=== PATIENT | female | born 1965 | race Caucasian/White ===

== ENCOUNTER 2017-07-15 09:16 | Inpatient (IN) | payer OTHER, MEDICAID ==
[2017-07-15] VITALS (8 sets, daily range): BP systolic 73–139; BP diastolic 30–86
[~2017-07-15] VITALS: Ht 157.5 cm; Wt 79.7 kg
[~2017-07-15 09:16] MED LIST: ACIDOPHILUS W/P1 CAP PO; AFRIN NS; AFRNS; AMANTADINE HCL100 M1; AMANTADINE HCL100 M1 PO; ASPIR 8181 MG PO; ATORVASTATIN CA10 M1 PO; CALCIUM + D1 TA1 PO; CARVEDILOL25 M1 PO; CLOPIDOGREL75 M1 PO; CORE25 PO; COREG12.5 MG PO; FAMOTIDINE20 MG PO; GLIPIZIDE5 MG PO; HYD25 PO; JANUVIA100 M1 PO; LAC PO; LEVAQUIN500 MG PO; LEVOTHYROXIN0.075 M2 PO; LIPI10 PO; LISINOPRIL20 MG PO; MEDDP PO; METFORMIN1000 M1 PO; NOR10 PO; OCU OU; PLA75 PO; PREOS; PRINIVIL10 MG PO; RESTASIS0.051 OU; ZES20 PO; ZOC20 PO
--- NOTE | 2017-07-15 09:25 | NUR ---
PT WAS BROUGHT IN BY AMBULANCE W/CC OF RESPIRATORY DISTRESS. PER MEDIC "PT LAST SEEN NORMAL WAS LAST NIGHT. HER FAMILY SAID SHE APPEARED TO BE RETAINING FLUIDS BUT DIDN'T WANT TO COME IN TO BE SEEN. THIS MORNING AROUND 0730 PATIENT WAS FOUND BREATHING HEAVILY AND INCONTINENT". PT ARRIVED TO ED IN RESP DISTRESS USING BIPAP MACHINE TO ASSIST IN BREATHING. DR. BUTLER AT BEDSIDE FOR MSE.
--- NOTE | 2017-07-15 09:25 | NUR ---
RT AT BEDSIDE ASSISTING DR. BUTLER W/INTUBATION. PT PRESENTS NO GAG REFLEX. INTUBATION TO FOLLOW.
--- NOTE | 2017-07-15 09:27 | NUR ---
10MG ETOMODATE IVP AND 75MG SUCCINYLCHOLINE IVP ADMINISTERED BY PARI JENSEN.
--- NOTE | 2017-07-15 09:40 | NUR ---
INTUBATION WAS UNSUCCESSFUL. DR. BUTLER IN PROGRESS OF ATTEMPTING AGAIN.
--- NOTE | 2017-07-15 09:41 | NUR ---
ADDITIONAL 50MG SUCCINYLCHOLINE AND 5MG OF ETOMODATE IVO ADMINISTERED BY PARI JENSEN DUE TO PT BECOMING AGGITATED DURING SECOND INTUBATION ATTEMPT ORDERED BY DR. BUTLER.
--- NOTE | 2017-07-15 09:47 | NUR ---
PT SUCCESSFULLY INTUBATED AT 23CM RT LIP LINE 7.5.
--- NOTE | 2017-07-15 10:00 | NUR ---
2L OF NS FLOWING PER SEPSIS PROTOCOL AND ORDERED BY DR. BUTLER
--- NOTE | 2017-07-15 10:08 | NUR ---
ZAMBRANO CATHETER INSERTED. APPROX 30CC URINE COLLECTED AND SENT TO LAB. NG TUBE TO FOLLOW. LAB AT BEDSIDE FOR DRAW.
--- NOTE | 2017-07-15 10:42 | NUR ---
RT AT BEDSIDE FOR ABG. FAMILY ALSO AT BEDSIDE.
[2017-07-15 10:43] LABS: CALCIUM 8.4 mg/dL (8.5-10.1); CARBON DIOXIDE 21.8 mmol/L (21-32); CREATININE SERUM 2.6 mg/dL (0.6-1.0); POTASSIUM SERUM 3.5 mmol/L (3.5-5.1)
[2017-07-15 10:49] LABS: microscopic required? YES; urine erythrocyte 1+ (NEGATIVE)
[2017-07-15 10:55] LABS: BILIRUBIN TOTAL 0.92 mg/dL (0.20-1.00)
--- NOTE | 2017-07-15 10:55 | NUR ---
FIO2 LOWERED TO 60% BY RT ON VENT SETTINGS.
[2017-07-15 10:59] LABS: CK-MB < 0.5 ng/mL (0-3.6); CREATINE KINASE 43 U/L (26-192)
[2017-07-15 11:00] LABS: ALBUMIN 2.5 g/dL (3.4-5.0); PLATELET COUNT 211 x10^3mcL (130-400); TOTAL PROTEIN, SERUM 6.1 g/dL (6.4-8.2)
--- NOTE | 2017-07-15 11:00 | NUR ---
PT'S BP DECREASED POST FLUID RESUSCITATION PER SEPSIS PROTOCOL. DR. BUTLER MADE AWARE.
--- NOTE | 2017-07-15 11:09 | NUR ---
1.5GM ROCEPHIN INFUSING ORDERED. RT HAND IV SITE PATENT. NO S/S OF INFILTRATION NOTED.
[2017-07-15 11:12] LABS: BAND NEUTROPHIL 40 % (0-10); MONOCYTE 12 % (0-7); SEGMENTED NEUTROPHILS 28 % (37-75); rbc morphology (normal/abnorm) ABNORMAL (NORMAL)
[2017-07-15 11:13] LABS: PLATELET MORPHOLOGY PLATELETS DECREASED
--- NOTE | 2017-07-15 11:20 | NUR ---
INFORMED DR. BUTLER OF PT'S BP DECREASING. DR. BUTLER ORDERED CENTRAL LINE PLACEMENT. CONSENT EXPLAINED AND SIGNED BY PT'S MOTHER. MOTHER AND SISTER VERBALIZED UNDERSTANDING OF NEED FOR CENTRAL LINE AND AGREED TO HAVE PROCEDURE DONE.
--- NOTE | 2017-07-15 11:39 | NUR ---
DOPAMINE 10MCG/MIN INFUSING ORDERED BY DR. BUTLER FOR DECREASING BP READING OF 71/43 (53).
--- NOTE | 2017-07-15 11:41 | NUR ---
MEDICATED ORDERED. PLEASE SEE EMR.
--- NOTE | 2017-07-15 12:01 | NUR ---
DR. BUTLER AT BEDSIDE PERFORMING CENTRAL LINE INSERTION. CHARGE NURSE FRANKY AND EMT ZENIA AT BEDSIDE ASSITING W/INSERTION.
--- NOTE | 2017-07-15 12:10 | NUR ---
RT CENTRAL LINE INSERTION COMPLETED. 100UNITS HEPARIN FLUSHED IN EACH PORT INSTRUCTED BY DR. BUTLER
--- NOTE | 2017-07-15 12:15 | NUR ---
FAMILY AT BEDSIDE. PT RESPONDING WELL. VSS. WILL CONTINUE TO MONITOR.
--- NOTE | 2017-07-15 12:40 | NUR ---
DR. BUTLER AT BEDSIDE DISCUSSING PLAN OF CARE W/FAMILY.
--- NOTE | 2017-07-15 12:55 | NUR ---
REPORT GIVEN TO PARI SPAIN IN ICU FOR CONTINUATION OF CARE OF PT.
[2017-07-15] MEDS ORDERED: CITALOPRAM HYDR10 M1 PO (13:00)
[2017-07-15] MEDS ORDERED: MUCINEX DM1 TE1 PO (13:01)
[2017-07-15] MEDS ORDERED: PROMETHAZI6.25 MG/5 PO (13:01)
--- NOTE | 2017-07-15 13:15 | NUR ---
DR. BUTLER AT BEDSIDE ADJUSTING CENTRAL LINE. XRAY RESULTS PROVED NEED FOR ADJUSTMENT.
--- NOTE | 2017-07-15 13:37 | NUR ---
DR. BYERS IN UNIT AND MADE AWARE LACTIC ACID 6.2, AWAITING PT'S ARRIVAL TO UNIT. PRIMARY RN MADE AWARE.
[2017-07-15 13:39] LABS: MAGNESIUM 1.3 mg/dL (1.8-2.4); PHOSPHOROUS 1.3 mg/dL (2.5-4.9)
[2017-07-15 13:42] LABS: CHOLESTEROL/HDL RATIO 1.7
--- NOTE | 2017-07-15 13:45 | NUR ---
RT AT BEDSIDE TO ASSIST W/TRANSFER OF PT TO ICU BED 3.
[2017-07-15 13:48] LABS: T3 TOTAL 0.54 ng/mL
--- NOTE | 2017-07-15 13:49 | NUR ---
MADE AWARE OF PHOSPHATE AND MAGNESIUM 1.3, WILL CONTINUE TO MONITOR.
[2017-07-15 13:50] LABS: FREE T4 1.24 ng/dL (0.76-1.46); FREE THYROXINE INDEX 2.6 ug/dL (1.4-4.5); T4(THYROXINE) 6.7 ug/dL (4.7-13.3)
--- NOTE | 2017-07-15 14:00 | NUR ---
PT TRANSFERED VIA GURNEY TO ICU BED 3 ACCOMPANIED BY NURSE, EMT AND RT. VSS. IV SITES AND CENTRAL LINE ARE INTACT. NO S/S OF INFILTRATION OR INFECTION NOTED. PT IN NO VISIBLE DISTRESS. CM, BIPAP MACHINE AND O2 ATTACHED TO PT. PT TRANSFERED IN STABLE CONDITION.
--- NOTE | 2017-07-15 14:02 | NUR ---
RECEIVED PATIENT FROM ER WITH EYES CLOSED PATIENT DOES NOT REPSOND TO VERBAL OR TACTILE STIMULI, NON VERBAL DUE TO PATIENT ON VENTILAOR AC MODE FIO2 60%, RATE 12, TV 500, AND PEEP 5, ETT TUBE SIZE 7.5 LL23, RESPIRAITONS EVEN AND SHALLOW. PALABPE PULSES TO BUE/BLE, ON EDEMA NOTED. MON MONITOR ST HR 164 WITH NO S/S OF CHEST PAIN. ACTIVE BOWEL SOUNDS, ABD SOFT/OBESE, NO S/S OF ABD PAIN, NO N/V/D, WITH OGT IN PLACE AND SECURE. F/C IN PLACE FLOWING ASHLEE COLORED URINE BY GRAVITY. SKIN INTACT WITH ECCYMOSIS TO RIGHT LATERAL BREAST/RIGHT KNEE DESIGNER AND PATTERNMAKER CDI. NO S/S OF PAIN NOTED. IV TO LH/RFA CDI AND IV TO RH CDI. BED TO LOWEST POSITION, SIDE RAILS UPX2, WILL CONTINUE TO MONITOR.
--- NOTE | 2017-07-15 14:38 | NUR ---
AT BEDSIDE, UPDATES PROVIDED, PER , RETRACT ETT 2 CM AND REPEAT CXR. ERLIN INITIATED AT 100 MCG/MIN, MAP 72. WILL CONTINUE TO MONITOR. PRIMARY RN PEÑA JAEGER.
--- NOTE | 2017-07-15 14:46 | NUR ---
PT MAP 32, TITRATE ERLIN TO MAX RATE 300 MCG/MIN, PER , REJI DOPAMINE AND INITIATE LEVOPHED. PHARMACY CALLED AT THIS TIME. PRIMARY RN PEÑA JAEGRE.
--- NOTE | 2017-07-15 14:47 | NUR ---
RADIOLOGY AT BEDSIDE TO CONFIRM CENTRAL LINE AND ETT PLACEMENT WITH CXR.
--- NOTE | 2017-07-15 14:52 | NUR ---
BP 66/49 MAP 57 LEVPOPHED STARTED AT 5MCG/MIN WILL CONTINUE TO MONITOR.
--- NOTE | 2017-07-15 14:55 | NUR ---
MAP 65, INITIATE LEVOPHED AT 5 MCG/MIN AT THIS TIME PER ORDER. PRIMARY RN PEÑA AT BEDSIDE AND AWARE. PER GIVE ANOTHER 1 L BOLUS IF PT RESPONDS WELL TO FIRST 1 L BOLUS.
[2017-07-15] MEDS ORDERED: GLUCOTROL5 MG PO (15:13)
[2017-07-15] MEDS ORDERED: ZESTRIL20 MG PO (15:14)
[2017-07-15] MEDS ORDERED: CARVEDILOL12.5 M1 PO (15:16)
--- NOTE | 2017-07-15 16:22 | NUR ---
BP 82/61 MAP 75 TITRATED LEVOPHED TO 14, WILL CONTINUE TO MONITOR.
--- NOTE | 2017-07-15 16:45 | NUR ---
APPLIED Z-GUARD TO REDNESS TO ABD FOLD, AND ALSO REDNESS BELOW BREAST, DR.CHOU JAEGER WILL CONTINUE TO MONITOR.
--- NOTE | 2017-07-15 17:14 | NUR ---
NS RATE CHANGED TO 126ML/HR PER DOCTORS ORDERS, WILL CONTINUE TO MONITOR.
--- NOTE | 2017-07-15 17:16 | NUR ---
MADE AWARE OF TEMPERATURE 101.3 AFTER GIVING TYLEONOL, NO NEW ORDERS, COOLING MEASURES DONE, WILL CONTINUE TO MONITOR.
--- NOTE | 2017-07-15 17:18 | NUR ---
MADE AWARE OF LACTIC ACID 8.1, WILL CONTINUE TO MONITOR.
--- NOTE | 2017-07-15 17:22 | NUR ---
BP 134/73 MAP 104 TITRATED LEVPOPHED TO 12MCG/MIN, NEOSYNEPHRINE IS INFUSING AT 275 MCG/MIN, WILL CONTINUE TO MONITOR.
--- NOTE | 2017-07-15 17:24 | NUR ---
AT BEDSIDE REPOSITIONING CENTRAL LINE, WILL CONTINUE TO MONITOR.
--- NOTE | 2017-07-15 17:28 | NUR ---
DR. BYERS AT BEDSIDE TO PULL BACK RIJ CENTRAL LINE PER CXR RESULTS. WILL FOLLOW UP WITH REPEAT CXR TO VERIFIY PLACEMENT. NIBP 151/28 MAP 117. NEOSYNEPHRINE TITRATED TO 270 MCG/MIN AND LEVOPHED TITRATED TO 8 MCG/MIN. WILL CONT MONITOR.
--- NOTE | 2017-07-15 17:43 | NUR ---
TEMPERATURE 99.0, BP 51/18 (29) TITRATED LEVPOPHED TO 14 MCG/MIN AND NEOSYNEPHRINE AT 300MCG/MIN, ATTEMPTED TO START FENTANYL AT 0.5MCG/KG/HR VERDED 0.5MG/HR BP IS LOW AND DROPPED DRIP, WILL CONTINUE TO MONITOR.
--- NOTE | 2017-07-15 18:29 | NUR ---
BP 132/111 MAP 118 TITRATED LEVOPHED TO 12MCG/MIN, FENTANYL TO 1MCG/KG/HR AND VERSED TO 1MG/HR, WILL CONTINUE TO MONITOR.
--- NOTE | 2017-07-15 18:30 | NUR ---
MADE FRANDY OF URINE OUT PUT FOR SHIFT WAS 100ML, NO NEW ORDERS WILL CONTINUE TO MONITOR.
--- NOTE | 2017-07-15 18:39 | NUR ---
BP 152/105 MAP 125 TITRATED LEVOPHED TO 12MCG/MIN, NEOSYNEPHRINE TO 290MG/MIN FENTANYL TO 1MCG/KG/HR AND VERSED TO 2MG/HR, WILL CONTINUE TO MONITOR.
--- NOTE | 2017-07-15 19:00 | NUR ---
BP 79/51 MAP 67 TITRATED LEVOPHED TO 14MG/MIN, AND NEOSYNEPHRINE TO 300MCG/MIN, TITRATED FENTANYL TO 0.5 MCG/KG/MIN, AND VERSED TO 0.5MG/HR, WILL CONTINUE TO MONITOR.
--- NOTE | 2017-07-15 20:05 | NUR ---
TITRATED NEOSYNEPHRINE TO 275 MCG/MIN. BP 137/44, MAP 77. WILL CONTINUE TO MONITOR.
--- NOTE | 2017-07-15 20:10 | NUR ---
DR EPPS AT BEDSIDE SUTURING RIJ IN PLACE.
--- NOTE | 2017-07-15 20:25 | NUR ---
TITRATED NEOSYNEPHRINE TO 300 MCG/MIN. BP 63/46, MAP 40. WILL CONTINUE TO MONITOR.
--- NOTE | 2017-07-15 20:37 | NUR ---
TITRATED LEVOPHED 18 MCG/MIN. BP 62/41, MAP 46. WILL CONTINUE TO MONITOR.
--- NOTE | 2017-07-15 20:55 | NUR ---
TITRATED LEVOPHED 20 MCG/MIN. BP 73/45, MAP 55. WILL CONTINUE TO MONITOR.
--- NOTE | 2017-07-15 21:55 | NUR ---
TITRATED LEVOPHED 21 MCG/MIN. BP 70/45, MAP 54. WILL CONTINUE TO MONITOR.
--- NOTE | 2017-07-15 22:20 | NUR ---
RT AT BEDSIDE TO ASSESS PT.
--- NOTE | 2017-07-15 23:25 | NUR ---
TITRATED LEVOPHED 21.5 MCG/MIN. MAP 53. WILL CONTINUE TO MONITOR.
[2017-07-16] VITALS (12 sets, daily range): BP systolic 44–135; BP diastolic 31–100; Ht 157.5 cm; Wt 79.7 kg
--- NOTE | 2017-07-16 | NUR ---
TITRATED LEVOPHED 22 MCG/MIN. BP 76/49, MAP 60. WILL CONTINUE TO MONITOR.
--- NOTE | 2017-07-16 00:27 | NUR ---
RT AT BEDSIDE
--- NOTE | 2017-07-16 00:50 | NUR ---
TITRATED LEVOPHED 23 MCG/MIN. BP 64/38, MAP 53. WILL CONTINUE TO MONITOR.
--- NOTE | 2017-07-16 01:02 | NUR ---
TITRATED LEVOPHED 24 MCG/MIN. BP 64/36, MAP 53. WILL CONTINUE TO MONITOR.
--- NOTE | 2017-07-16 01:27 | NUR ---
TITRATED LEVOPHED 26 MCG/MIN. BP 62/50, MAP 57. WILL CONTINUE TO MONITOR.
--- NOTE | 2017-07-16 02:20 | NUR ---
LEVOPHED TITRATED TO 28 MCG/MIN, BP 62/50, MAP 54, DR ODOM AWARE OF UNSTABLE VITAL SIGNS, NEOSYNEPHRINE CURRENTLY ON A MAX DOSE.
--- NOTE | 2017-07-16 02:33 | NUR ---
TITRATED LEVOPHED 30 MCG/MIN. BP 60/431, MAP 49. WILL CONTINUE TO MONITOR.
--- NOTE | 2017-07-16 03:30 | NUR ---
RECEIVED CALL FROM PHARMACIST DAVID AND INSTRUCTED TO MIX 20 UNITS OF VASOPRESSIN INTO 100 ML OF NORMAL SALINE AND INFUSE AT 0.01 UNITS/MINUTE. TITRATION TO REMAIN THE SAME ORIGINALLY ORDERED. 0338 VASOPRESSIN MIXED AT INSTRUCTED ABOVE AND PT STARTED ON MEDICATION. MARILUZ YAÑEZ AND DR HOLLAND WITH MYSELF AT BEDSIDE AT THIS TIME.
--- NOTE | 2017-07-16 04:20 | NUR ---
VASOPRESSIN TITRATED TO 0.02 UNITS/MIN. BP 73/45, MAP 52. WILL CONTINUE TO MONITOR.
[2017-07-16 05:03] LABS: PLATELET COUNT 178 x10^3mcL (130-400); RED CELL DISTRIBUTION WIDTH 13.1 % (11.5-14.5)
[2017-07-16 05:08] LABS: BASOPHIL % 0 % (0-2)
[2017-07-16 05:11] LABS: CALCIUM 6.8 mg/dL (8.5-10.1); CARBON DIOXIDE 12.2 mmol/L (21-32); CREATININE SERUM 3.9 mg/dL (0.6-1.0); MAGNESIUM 1.5 mg/dL (1.8-2.4); PHOSPHOROUS 2.7 mg/dL (2.5-4.9); POTASSIUM SERUM 4.8 mmol/L (3.5-5.1)
--- NOTE | 2017-07-16 05:15 | NUR ---
VASOPRESSIN TITRATED TO 0.03 UNITS/MIN. BP 67/53, MAP 59. WILL CONTINUE TO MONITOR.
--- NOTE | 2017-07-16 05:30 | NUR ---
DR HOLLAND AT BEDSIDE WITH FAMILY DISCUSSING PT STATUS AND CODE STATUS. DR BYERS INTRODUCED AT THIS TIME.
--- NOTE | 2017-07-16 06:32 | NUR ---
DR HOLLAND AND DR BYERS AT BEDSIDE TO PERFORM GUIAC TEST. BOTH DOCOTRS INFORMED OF AM LABS.
--- NOTE | 2017-07-16 06:50 | NUR ---
PT HAD BM, PT WIPED DOWN AND GOWN CHANGED. WILL CONTINUE TO MONITOR.
--- NOTE | 2017-07-16 06:55 | NUR ---
RECEIVED REPORT FROM [facility] PARI AMADO, ALL QUESTIONS AND CONCERNS ADDRESSED AT THIS TIME, WILL ASSUME ALL CARE.
--- NOTE | 2017-07-16 07:00 | NUR ---
TO SPEAK WITH FAMILY ABOUT ART LINE PLACEMENT, AT THIS TIME FAMILY REFUSING. ALSO TO DISCUSS CODE STATUS, PER FAMILY CONTINUE FULL CODE UNTIL OTHER FAMILY MEMBERS ARRIVE.
--- NOTE | 2017-07-16 07:10 | NUR ---
REPORT GIVEN TO JOSE F YAÑEZ TO ASSUME CARE.
--- NOTE | 2017-07-16 07:33 | NUR ---
MIKHAIL CARABALLO AND CORNEL CARABALLO AT BEDSIDE TO ATTEMPT TO OBTAIN ABG.
--- NOTE | 2017-07-16 07:39 | NUR ---
PT IS INTUBATED WITH 7.5 ETT, 21 LL, RIJ INFUSING VASOPRESSIN 0.04, LEVO 30, ERLIN 300, NS 126, MAG RIDER, FENT/VERSED 0.5, ALL PORTS PATENT AND FLUSHING. PT DOES NOT RESPOND TO ANY STIMULI. PT HAS NO GAG. PT PUPILS ARE SLUGGISH 5 MM BILATERALLY. PT BUL COARSE CRACKLES, BLL DIM. NO SECRETIONS REMOVED. PT ON AC MODE, PEEP 5, FI02 60%, RATE 12, VT 500. PT HAS OGT IN PLACE. PT ABD IS SOFT, ROUND, SYMMETRICAL AND NONTENDER TO PALPATION PER FLACC SCALE. PT HAS HYPOACTIVE BOWEL SOUNDS X 4 QUADRANTS. PT HAS ZAMBRANO CATH IN PLACE DRAINING TO GRAVITY SCANT ASHLEE URINE, NO SEDIMENT OR BLOOD NOTED IN URINE. PT HAS NO EDEMA AND ALL PULSES AUCULTATED VIA DOPPLER. PT ON SCISSORS GRINDER SHOWING SINUS TACHYCARDIA WITH PVC'S. WILL CONTINUE TO MONITOR PT CLOSELY.
--- NOTE | 2017-07-16 08:28 | NUR ---
DR. GUNN, RESIDENTS, AGENT CONTRACT CLERK AND PRIMARY RN AT BEDSIDE FOR MORNING ROUNDS. PLAN OF CARE DISCUSSED. WILL CONT MONITOR.
--- NOTE | 2017-07-16 09:12 | NUR ---
SPEAKING WITH MOM/DAD AND SIBLINGS ABOUT PT CRITICAL STATUS. PER FAMILY MAKE PT DNR BUT CONTINUE WITH CURRENT MEDICATIONS AT THIS TIME. FAMILY VERBALIZES UNDERSTANDING OF DNR STATUS. TO CHANGE CODE STATUS AT THIS TIME.
--- NOTE | 2017-07-16 09:30 | NUR ---
CABLE COVERER AT BEDSIDE.
--- NOTE | 2017-07-16 10:27 | NUR ---
Initial Nutrition Assessment Dx: Sepsis, Septic Shock, Respiratory Failure PMHx: CVA (02/2016)m R cochlear implant (05/2015), brainstem tumor resection (age 11, s/p chemo and radiation treatment), type 2 DM, HTN, heart murmur, hypothyroidism, falls, syncope, depression, GERD PSHx: Cataract removal (2000), R ear cochlear implant (05/2015), brainstem tumor resection (age 11) Labs: Na 124 L, BG 393 H, BUN 38 H, Cr 3.9 H, Magnesium 1.5 L, Troponin 1.076 H, WBC 13.9 H, H/H 11/33 L; (07/15) ALB 2.5 L, A1C 8.4 H, Lactic Acid 7.8 H Meds: Colace, D50, humulin R, lactinex, levophed, magnesium sulfate, neosynephrine, neutra-phos, Pepcid, NS IV, solu-cortef, synthroid, theragran, vasostrict, versed, zofran Current Diet Order: NPO except meds (x1 day, 07/15) (Intubation) Ht: 62", 5' 2". Wt: 175 lb, 80 kg. BMI: 32.1 kg/m2 (Obesity Class I) - Likely inaccurate due to fluid retention IBW: 110 lb, 50 kg. %IBW: 160%. Adj BW: 126 lb, 57 kg. UBW: 132-134 lb (stable per prior RD note 08/25/16). Wt Hx: (08/25/16) 132 lb, 61 kg. Bedscale Wt: (07/15) 152 lb, 69 kg; (07/16) 175 lb, 80 kg - Noted +23 lb in 1 day; Per RN, pt was given 4 L fluids overnight, not much urine output, possibly fluid retention Age: 51 Y/O F Food Allergies: Unable to obtain Skin: Redness to abd/breast folds; Intact. Ricco 14. Edema: None GI: Abd soft, round, non-tender. Hypoactive bowel sounds. Last BM x1 07/15. Nutrition Consult: Intubated, Sedated. Thank you for your consult. Pt found with possible acute respiratory failure possibly secondary to septic shock possibly secondary to aspiration pneumonia, disorder of ANS with syncope, possible CVA, FNS consult for tube feeding per doctor's notes. Per doctor's progress note 07/16, blood pressure difficult to control 60/40, MAP 65 highest, levophed and neosinephrine maxed, added vasopressin. Pt seen +intubated, sedated, +ETT to vent support, +OGT in place, undergoing ECHO procedure during RD visit. Family in the waiting room per RN. RN stated that family leaning towards palliative extubation. RN also stated waiting for Dr. Gonzales to evaluate pt. Spoke with Dr. Del Valle regarding recommendations, stated that pt is not stable at this time to start tube feeding due to multiple pressors, doctor noted and also notified Dr. Austin. Noted that information obtained mostly from previous RD note 08/25/16 on pt's prior admission. Problem with: N: None. V: None. D: None. C: None. Problems with: Chewing: None. Swallowing: None. Recent Weight Change: +20 lb; % Weight Change: 15% weight gain within 10 months Vitamin/Supplement use: Unable to obtain Diet at Home: Regular; 3 small meals, likes to eat fish and chicken; Mother prepares Low Fat/Low Salt meals at home Physical Activity: None Education: Not appropriate at this time. Per prior RD note 08/25/16, RD provided DM/Heart Healthy diet education to mother and pt at bedside, handouts provided, both highly receptive. Estimated Nutritional Needs Based CBW 152 lb, 69 kg. MAP: 84. Temperature: 99.9 F/37.7 C. Ventilator in L/min: 9.2. Energy: 7299-8255 kcal/day (30-35 kcal/kg for Ventilator Support) Protein: 104-138 gm/day (1.5-2 gm/kg for Ventilator Support) Fluids: 2070 ml/day (30 ml/kg for Maintenance) or per doctor Nutrition Diagnosis Increase nutritional (energy, protein) needs related to increased metabolic demands as evidenced by pt diagnosed with sepsis, septic shock, elevated WBC 13.9, lactic acid 7.8, temperature 99.9 F Intervention 1. Consider advance diet per MD if/when medically appropriate. 2. Note that pt is not stable yet to start tube feeding. 3. If/when medically feasible, and if nutrition support is warranted, consider initiation of TF Nutren Pulmonary at 20 ml/hr, increase 10 ml Q6h to goal 50 ml/hr, Free Water Flush: 50 ml Q6h via OGT. This provides 1800 kcal (87% of kcal goal), 82 gm protein (79% of protein goal), 1138 ml free water daily. 4. Adjust insulin regimen. Noted BG levels elevated at 393 mg/dL. Monitor/Evaluate Goal: NPO <5-7 days; Diet advancement; BG <200 mg/dL Monitor: NPO status, diet advancement, labs, skin integrity, GI function, weights F/U in 2-3 days as HIGH risk (07/18-07/19)
[2017-07-16 10:28] LABS: CALCIUM 6.6 mg/dL (8.5-10.1); POTASSIUM SERUM 5.3 mmol/L (3.5-5.1)
--- NOTE | 2017-07-16 10:53 | NUR ---
UNABLE TO OBTAIN ABG.
--- NOTE | 2017-07-16 11:00 | NUR ---
MADE AWARE OF CRITICAL LAB VALUES, K 5.3, BUN 40, CT 4.0. NO NEW ORDERS AT THIS TIME PT IS DNR AND POSSIBLY PALLIATIVE MEASURES ONLY AT A LATER TIME.
--- NOTE | 2017-07-16 12:09 | NUR ---
[facility] AIRCRAFT LINE ASSEMBLER TO PROVIDE SERVICES FOR GRIEVANCE COUNSELING, WILL CALL MARY FOR FAMILY MEETING.
--- NOTE | 2017-07-16 14:14 | NUR ---
[facility] HAVING FAMILY MEETING AT THIS TIME, PER FAMILY PALLIATIVE EXTUBATION AT THIS TIME. WILL CONTINUE TO MONITOR PT AT THIS TIME.
--- NOTE | 2017-07-16 14:35 | NUR ---
ELAINE AT BEDSIDE TO PRAY WITH PT AND FAMILY.
--- NOTE | 2017-07-16 14:57 | NUR ---
MIKHAIL RT AT BEDSIDE TO PALLIATIVE EXTUBATE PT PER FAMILY REQUEST AND ORDER AND PLACED ON 2L SIMPLE MASK. WILL CONTINUE TO MONITOR PT AT THIS TIME.
--- NOTE | 2017-07-16 15:07 | NUR ---
AT BEDSIDE TO PRONOUNCE PT AT THIS TIME. NO PULSE, NO BREATHING, NO BP, PUPILS NONREACTIVE. FAMILY AT BEDSIDE.
--- NOTE | 2017-07-16 18:24 | NUR ---
ADMITTING LATASHA NOTIFIED 1509 HOUSE [employer]P DEMETRIO NOTIFIED 1510 [employer] NOTIFIED AT 1533, RELEASED AT 1745 BY OG, CASE #[id number] HIGHWAY WORKER NOTIFIED AT 1526, STILL AWAITING RETURN PHONE CALL AT THIS TIME. CALISTA HANSON SIGNED RELEASE FORM.
--- NOTE | 2017-07-16 19:06 | NUR ---
REPORT RECEIVED FROM CHRYSTAL RN. PT INTUBATED AND SEDATED ON FENTANYL AND VERSED. ETT PRESENT/SECURED AND CONNECTED TO VENT. OGT PRESENT/SECURED. ZAMBRANO CATHETER DRAINING TO GRAVITY. FLEXISEAL DRAINING TO GRAVITY. SCD'S IN PLACE. TUBE FEEDING INFUSING VIA PUMP. RIJ PRESENT/SECURE. NO S/SX OF DISTRESS AT THIS TIME. WILL CONTINUE TO MONITOR. PT BED IN VIEW OF NURSES STATIOM.
--- NOTE | 2017-07-16 19:12 | NUR ---
CHILD AND FAMILY COUNSELOR CALLED AT THIS TIME AND RELEASED BODY, CASE # [id number], CHILD AND FAMILY COUNSELOR NAME CLARK HAMMOND. POST MORTEM CARE PROVIDED AND BAGGED AND TAGGED PER PROTOCOL. SECURITY CALLED TO TAKE PT TO [facility] AT THIS TIME.
== END 2017-07-16 20:00 | disposition expired | DRG 871 ==
LOC: ED 09:16 → IC 12:30
PROVIDERS: Emergency Medicine Emergency Medical Services; ADMIT Family Medicine
PROC: 5A1945Z Respiratory Ventilation, 24-96 Consecutive Hours (ICD-10-PCS; principal; 2017-07-15)
PROC: 0BH17EZ Insertion of Endotracheal Airway into Trachea, Via Natural or Artificial Opening (ICD-10-PCS; 2017-07-15)
DX: A41.9 Sepsis, unspecified organism (principal); R65.21 Severe sepsis with septic shock; J96.01 Acute respiratory failure with hypoxia; E43 Unspecified severe protein-calorie malnutrition; N17.0 Acute kidney failure with tubular necrosis; J69.0 Pneumonitis due to inhalation of food and vomit; D68.69 Other thrombophilia; E87.1 Hypo-osmolality and hyponatremia; E11.65 Type 2 diabetes mellitus with hyperglycemia; E83.42 Hypomagnesemia; E03.9 Hypothyroidism, unspecified; E83.51 Hypocalcemia; S05.02XA Injury of conjunctiva and corneal abrasion without foreign body, left eye, initial encounter; R01.1 Cardiac murmur, unspecified; F32.9 Major depressive disorder, single episode, unspecified; H04.123 Dry eye syndrome of bilateral lacrimal glands; E83.39 Other disorders of phosphorus metabolism; E66.3 Overweight; H53.461 Homonymous bilateral field defects, right side; I69.320 Aphasia following cerebral infarction; Z92.3 Personal history of irradiation; Z68.27 Body mass index [BMI] 27.0-27.9, adult; Z85.841 Personal history of malignant neoplasm of brain; Z92.21 Personal history of antineoplastic chemotherapy; Z66 Do not resuscitate; Z51.5 Encounter for palliative care
CPT/HCPCS: 36600; 82962; 83880; 84439; A4628; J0330; J0696; J1265; J1720; J1956; J2001; J2250; J2270; J2370; J2543; J3010; J3475; J3490; J7030; J7040; J7620; Q0092